=== PATIENT | female | born 1985 | race Caucasian/White ===

== ENCOUNTER 2021-11-30 16:21 | Inpatient (IN) | payer OTHER ==
[2021-11-30] MEDS ORDERED: ACETAMINOPHEN 500 MG TABLET (FP) PO ONE (17:32)
[2021-11-30] MEDS ORDERED: SODIUM CHLORIDE 0.9% 1000 ML INFUS.BAG IV ONE (18:33)
[2021-11-30] MEDS ORDERED: ONDANSETRON 4 MG/2 ML VIAL IVPUSH ONE ×2 (18:34→23:09)
[2021-11-30 19:19] LABS: URINE APPEARANCE CLOUDY; URINE BILIRUBIN NEGATIVE (NEGATIVE); URINE COLOR YELLOW; URINE GLUCOSE (UA) NEGATIVE (NEGATIVE); URINE KETONE NEGATIVE (NEGATIVE); URINE LEUK ESTERASE NEGATIVE (NEGATIVE); URINE NITRITE NEGATIVE (NEGATIVE); URINE PROTEIN NEGATIVE (NEGATIVE)
[2021-11-30 19:22] LABS: BASO % 0.8 % (0-2.0); EOS % 2.2 % (0-4.5); HEMOGLOBIN 13.2 GM/dL (10.7-15.3); LYMPH % 24.9 % (8-40); MCH 33.4 pg (25.7-33.7); MEAN CELL VOLUME 98.3 fl (80-96); MONO % 4.6 % (3.8-10.2); NEUT % 67.5 % (42.8-82.8); PLATELET COUNT 214 10^3/uL (134-434); RBC 3.96 M/mm3 (3.60-5.2); RDW 13.3 % (11.6-15.6); WHITE BLOOD COUNT 7.7 K/mm3 (4.0-10.0)
[2021-11-30] MEDS ORDERED: ONDANSETRON 4 MG/2 ML VIAL ONE ×2 (19:22→23:09)
[2021-11-30 19:39] LABS: CHLORIDE 102 mmol/L (98-107); SODIUM 141 mmol/L (136-145)
[2021-11-30 19:42] LABS: ALBUMIN 3.6 g/dl (3.4-5.0); ANION GAP 4 MMOL/L (8-16); BLOOD UREA NITROGEN 5.4 mg/dL (7-18); CO2 35 mmol/L (21-32); GLUCOSE,RANDOM 88 mg/dL (74-106)
[2021-11-30 19:44] LABS: CREATININE 0.6 mg/dL (0.55-1.3); SGOT/AST 712 U/L (15-37)
[2021-11-30 19:47] LABS: BILIRUBIN,TOTAL 0.5 mg/dL (0.2-1); TOT PROT 6.3 g/dl (6.4-8.2)
[2021-11-30 19:48] LABS: ALK PHOS 62 U/L (45-117)
[2021-11-30 19:53] LABS: COCAINE, UR NEGATIVE (NEGATIVE); PHENCYCLIDINE,URINE NEGATIVE (NEGATIVE); URINE BENZODIAZEPINES NEGATIVE (NEGATIVE)
[2021-11-30 19:54] LABS: METHADONE, UR NEGATIVE (NEGATIVE); OPIATES, URI NEGATIVE (NEGATIVE); SGPT/ALT 1429 U/L (13-61); URINE AMPHETAMINES POSITIVE (NEGATIVE); URINE BARBITURATES NEGATIVE (NEGATIVE)
[2021-11-30] MEDS ORDERED: DEXTROSE 5% IVPB ONE ×5 (20:33→22:00)
[2021-11-30] MEDS ORDERED: ACETYLCYSTEINE IVPB ONE ×5 (20:33→22:00)
[2021-11-30] MEDS ORDERED: WATER IVPB ONE ×5 (20:33→22:00)
[2021-11-30 21:41] LABS: INR 1.03 (0.83-1.09); PROTHROMBIN TIME (PATIENT) 11.9 SEC (9.7-13.0)
[2021-11-30 21:43] LABS: ACTIVATED PTT 27.6 SECONDS (25.2-36.5)
[2021-11-30 22:07] LABS: LIPASE 175 U/L (73-393)
[2021-11-30 22:09] LABS: LIPASE 190 U/L (73-393)
[2021-12-01] MEDS ORDERED: POTASSIUM CHLORIDE 10 MEQ in DEXTROSE 5%-NORMAL SALINE 1,000 ML IVPB SCH (00:15)
[2021-12-01] MEDS ORDERED: METOCLOPRAMIDE HCL INJECTION 10 MG/2 ML VIAL IVPUSH PRN (00:48)
[2021-12-01] MEDS ORDERED: POTASSIUM CHLORIDE ORAL LIQUID 20 MEQ/15 ML PO ONE (00:50)
[2021-12-01] MEDS ORDERED: chlordiazePOXIDE HCL 25 MG CAPSULE PO PRN (00:58)
[2021-12-01] MEDS ORDERED: METOCLOPRAMIDE HCL INJECTION 10 MG/2 ML VIAL ONE (01:03)
[2021-12-01] MEDS ORDERED: POTASSIUM CHLORIDE ORAL LIQUID 20 MEQ/15 ML ONE (01:47)
[2021-12-01] MEDS: D5-1/2NS+40 MEQ KCL - 40 MEQ/1,000 ML INFUS.BAG IV SCH ×2 (02:03→15:38)
[2021-12-01] MEDS ORDERED: FOLIC ACID INJECTION - 1 MG, THIAMINE HCL 100 MG, MULTIVIT INJECTION ADULT 10 ML in SOD... IVPB ONE (04:02)
[2021-12-01] MEDS: ACETYLCYSTEINE IVPB ONE ×2 (04:43→06:08)
[2021-12-01] MEDS: DEXTROSE 5% IVPB ONE ×2 (04:43→06:08)
[2021-12-01] MEDS: WATER IVPB ONE ×2 (04:43→06:08)
[2021-12-01 08:43] LABS: MAGNESIUM 1.9 mg/dL (1.8-2.4)
[2021-12-01 10:50] LABS: BASO % 0.8 % (0-2.0); EOS % 2.3 % (0-4.5); HEMATOCRIT 36.5 % (32.4-45.2); HEMOGLOBIN 12.7 GM/dL (10.7-15.3); LYMPH % 28.1 % (8-40); MCHC 34.8 g/dl (32.0-36.0); MEAN CELL VOLUME 97.6 fl (80-96); MEAN PLT VOLUME 8.4 fl (7.5-11.1); MONO % 6.9 % (3.8-10.2); NEUT % 61.9 % (42.8-82.8); PLATELET COUNT 213 10^3/uL (134-434); RBC 3.74 M/mm3 (3.60-5.2); RDW 13.3 % (11.6-15.6); WHITE BLOOD COUNT 6.4 K/mm3 (4.0-10.0)
[2021-12-01 11:06] LABS: INR 1.08 (0.83-1.09); PROTHROMBIN TIME (PATIENT) 12.4 SEC (9.7-13.0)
[2021-12-01 11:07] LABS: ACTIVATED PTT 29.2 SECONDS (25.2-36.5)
[2021-12-01 11:14] LABS: CHLORIDE 109 mmol/L (98-107); SODIUM 143 mmol/L (136-145)
[2021-12-01 11:21] LABS: ANION GAP 6 MMOL/L (8-16); CALCIUM 8.3 mg/dL (8.5-10.1); CO2 29 mmol/L (21-32); GLUCOSE,RANDOM 95 mg/dL (74-106); MAGNESIUM 1.7 mg/dL (1.8-2.4)
[2021-12-01 11:23] LABS: PHOSPHOROUS 3.7 mg/dL (2.5-4.9)
[2021-12-01 11:24] LABS: BILIRUBIN,TOTAL 0.4 mg/dL (0.2-1); CREATININE 0.4 mg/dL (0.55-1.3); SGOT/AST 312 U/L (15-37); SGPT/ALT 999 U/L (13-61); TOT PROT 5.5 g/dl (6.4-8.2)
[2021-12-01 11:25] LABS: ALK PHOS 51 U/L (45-117)
[2021-12-01 11:29] LABS: BLOOD UREA NITROGEN 2.4 mg/dL (7-18)
[2021-12-01 11:35] LABS: CHOLESTEROL 122 mg/dL (50-200)
[2021-12-01 11:37] LABS: LDL CHOLESTEROL (ONLY SJRH) 42 mg/dL (5-100); TRIGLYCERIDES 98 mg/dL (0-150)
[2021-12-01 11:39] LABS: HDL CHOLESTEROL 74 mg/dL (40-60)
[2021-12-01 16:02] VITALS: BMI 25.4
[2021-12-01] MEDS: chlordiazePOXIDE HCL 25 MG CAPSULE PO SCH ×2 (17:32→22:00)
[2021-12-02] MEDS: D5-1/2NS+40 MEQ KCL - 40 MEQ/1,000 ML INFUS.BAG IV SCH (01:41)
[2021-12-02] MEDS: chlordiazePOXIDE HCL 25 MG CAPSULE PO SCH (05:11)
[2021-12-02 06:04] VITALS: BP 125/79; PULSE 64; TEMP 98.5
[2021-12-02 09:25] LABS: BASO % 0.8 % (0-2.0); EOS % 2.8 % (0-4.5); HEMATOCRIT 34.8 % (32.4-45.2); HEMOGLOBIN 11.8 GM/dL (10.7-15.3); LYMPH % 33.5 % (8-40); MCH 33.3 pg (25.7-33.7); MCHC 34.1 g/dl (32.0-36.0); MEAN CELL VOLUME 97.8 fl (80-96); MEAN PLT VOLUME 8.2 fl (7.5-11.1); MONO % 8.2 % (3.8-10.2); NEUT % 54.7 % (42.8-82.8); PLATELET COUNT 204 10^3/uL (134-434); RBC 3.55 M/mm3 (3.60-5.2); RDW 13.2 % (11.6-15.6); WHITE BLOOD COUNT 6.3 K/mm3 (4.0-10.0)
[2021-12-02 10:18] LABS: CALCIUM 8.2 mg/dL (8.5-10.1)
[2021-12-02 10:19] LABS: ALBUMIN 2.8 g/dl (3.4-5.0); BLOOD UREA NITROGEN 3.1 mg/dL (7-18)
[2021-12-02 10:22] LABS: BILIRUBIN,DIRECT 0.1 mg/dL (0.0-0.2); CREATININE 0.4 mg/dL (0.55-1.3)
[2021-12-02 10:24] LABS: TOT PROT 5.3 g/dl (6.4-8.2)
[2021-12-02 10:34] LABS: BILIRUBIN,TOTAL 0.4 mg/dL (0.2-1)
[2021-12-02] MEDS ORDERED: ALPRAZolam 1 MG TABLET PO PRN (13:06)
[2021-12-03] MEDS ORDERED: chlordiazePOXIDE HCL 25 MG CAPSULE PO SCH (05:00)
[2021-12-04] MEDS ORDERED: chlordiazePOXIDE HCL 10 MG CAPSULE PO PRN
[2021-12-04] MEDS ORDERED: chlordiazePOXIDE HCL 10 MG CAPSULE PO SCH (05:00)
[2021-12-05] MEDS ORDERED: chlordiazePOXIDE HCL 10 MG CAPSULE PO SCH (05:00)
[2021-12-06] MEDS ORDERED: chlordiazePOXIDE HCL 10 MG CAPSULE PO ONE (05:00)
== END 2021-12-02 14:38 | disposition left against medical advice (07) | DRG 812 ==
LOC: JER 16:21 → JERBED 21:48 → J7W 12-01 07:36
PROVIDERS: ADMIT Internal Medicine
DX: T43.624A Poisoning by amphetamines, undetermined, initial encounter (principal); M62.82 Rhabdomyolysis; G90.50 Complex regional pain syndrome I, unspecified; K71.10 Toxic liver disease with hepatic necrosis, without coma; K21.9 Gastro-esophageal reflux disease without esophagitis; J45.909 Unspecified asthma, uncomplicated; E87.6 Hypokalemia; M79.7 Fibromyalgia; R74.01 Elevation of levels of liver transaminase levels; Y92.89 Other specified places as the place of occurrence of the external cause; R74.8 Abnormal levels of other serum enzymes; G56.00 Carpal tunnel syndrome, unspecified upper limb; F17.210 Nicotine dependence, cigarettes, uncomplicated; F12.90 Cannabis use, unspecified, uncomplicated; Z53.29 Procedure and treatment not carried out because of patient's decision for other reasons
CPT/HCPCS: 36415; 70450-TC; 71045-TC-FY; 72125-TC; 76705-TC; 80048; 80053; 80061; 80076; 80307; 81003; 82140; 82550; 82553; 83516; 83690; 83735; 84100; 84436; 84443; 84703; 85025; 85610; 85730; 86038; 86704; 86708; 86803; 87340; 87350; 87517; 87522; 93005; 93010; 99285-25; C9803-CS; U0003; U0005

== ENCOUNTER 2023-08-11 01:09 | Emergency (ER) | payer OTHER ==
[2023-08-11 01:19] VITALS: BP 109/56; PULSE 69; RESP 18; TEMP 97; BMI 27.4
[2023-08-11] MEDS ORDERED: BACITRACIN ZINC 15 GM TUBE TOPICAL OINTMENT ONE (01:57)
[2023-08-11] MEDS ORDERED: DIPHTH,PERTUSS(ACELL),TET 0.5 ML DISP.SYRIN IM ONE (01:57)
[2023-08-11] MEDS: DIPHTH,PERTUSS(ACELL),TET 0.5 ML DISP.SYRIN IM ONE (01:59)
[2023-08-11] MEDS: BACITRACIN ZINC 15 GM TUBE TOPICAL OINTMENT TP ONE (01:59)
== END 2023-08-11 02:17 | disposition home or self-care (01) ==
LOC: JER 01:09
PROC: 3E0234Z Introduction of Serum, Toxoid and Vaccine into Muscle, Percutaneous Approach (ICD-10-PCS; principal; 2023-08-11)
DX: S00.91XA Abrasion of unspecified part of head, initial encounter (principal); W26.8XXA Contact with other sharp object(s), not elsewhere classified, initial encounter; Y92.89 Other specified places as the place of occurrence of the external cause; Y92.009 Unspecified place in unspecified non-institutional (private) residence as the place of occurrence of the external cause
CPT/HCPCS: 90471; 90715; 99283-25